=== PATIENT | male | born 1955 | race Caucasian/White ===

== ENCOUNTER 2021-12-28 01:56 | Day surgery (SDC) | payer OTHER, SELFPAY ==
[2021-12-14 14:54] VITALS: BMI 35.4
[2021-12-28 09:29] VITALS: BP 139/78; PULSE 70; RESP 20; TEMP 36; O2SAT 99; BMI 34.4
--- NOTE | 2021-12-28 09:32 | WPDANESEPPF ---
Anes - Initial Pre Proc Eval Procedure: Operation Date: 12/28/21 10:00 Proposed Procedures p Screening Colonoscopy - Augie Gloria MD Date/Time: 12/28/21 09:32 Surgeon: Augie Gloria MD Pre Op Diagnosis: hx of colon polyps Patient Data Age: 66 Gender: M Height: 1.88 m Weight: 121.9 kg Last Vital Signs Temp 36.0 C L 12/28/21 09:29 Pulse 70 12/28/21 09:29 Resp 20 12/28/21 09:29 BP 139/78 12/28/21 09:29 Pulse Ox 99 12/28/21 09:29 O2 Del Method Room Air 12/28/21 09:29 Allergies Allergy/AdvReac Type Severity Reaction Status Date / Time Penicillins Allergy Unknown Unknown Verified 12/28/21 09:29 Home Medications Medication Instructions Recorded Confirmed Type losartan 100 1 tablet PO DAILY #90 tabs 05/04/21 12/14/21 Rx mg-hydrochlorothiazide 12.5 mg tablet ergocalciferol (vitamin D2) 50 mcg 50 mcg PO DAILY 10/19/21 12/14/21 History (2,000 unit) capsule glipizide 5 mg tablet, extended 5 mg PO DAILY #90 tabs 10/19/21 12/14/21 Rx release 24 hr mecobalamin (vitamin B12) 5,000 5,000 mcg PO DAILY 10/19/21 12/14/21 History mcg lozenge multivitamin 1 tablet PO DAILY 10/19/21 12/14/21 History testosterone enanthate 75 mg/0.5 75 mg subcut WEEKLY 10/19/21 12/14/21 History mL subcutaneous auto-injector amlodipine 5 mg tablet 5 mg PO DAILY #90 tabs 10/22/21 12/14/21 Rx Patient hx anesthesia problems: none Family hx anesthesia problems: none Results Review: All pre-operative results and documents have been reviewed as part of the pre-operative evaluation. [facility] Past Medical History Medical History Dyslipidemia Essential (primary) hypertension Family history of prostate cancer in father Heart murmur History of colon polyps Hypogonadism in male OSMAR (obstructive sleep apnea) Type 2 diabetes mellitus without complication, without long-term current use of insulin Surgical History Surgical History History of tonsillectomy (Unknown) Family History Family History Father Malignant neoplasm of prostate Grandparent Malignant neoplasm of prostate Social History Social History Smoking status: Light tobacco smoker Tobacco type: cigars Smoking end date: 07/31/21 Alcohol intake: current Alcohol use details: socially Substance use: never Substance use type: does not use Living arrangements: with family Additional living arrangements comments: Gender identity (if verbalized by the patient): Male Sexual Orientation (if Verbalized by the Patient): Straight or Heterosexual Spiritual care concerns: No Anes - Eval Final PreProcedure Day of Procedure 12/28/21 09:32 Patient weight: obese Heart: regular rate and rhythm Lungs: clear to auscultation and normal air movement Airway: Mallampati scale class II Neurological: alert and oriented Last oral intake: >/= 8 hours ASA classification: III Emergent: no Anesthetic plan: proceed Anesthesia type and monitoring: general GIVS Results Review: All pre-operative results and documents have been reviewed as part of the pre-operative evaluation. Informed Consent: The patient's anesthetic plan and its attendant risks and benefits were discussed with the patient/family/POA. Questions were solicited and answers provided to the satisfaction of the patient/family/POA.
[2021-12-28] MEDS: LACTATED RINGERS 1,000 ML 150 ML IV CONT (09:41)
[2021-12-28 09:44] LABS: Glucose Point of Care 119 mg/dl (65-105)
--- NOTE | 2021-12-28 10:03 | PM.IMHP ---
H&P: HPI History of Present Illness Date/Time: 12/28/21 10:03 Chief Complaint: History of colon polyps Narrative: this is a 66-year-old white male patient presents for screening colonoscopy. Patient's current weight appetite and bowel movements are normal. He denies abdominal pain. Patient has had no bleeding. Family history is noncontributory. Patient had a tubulovillous adenoma removed the colon 2009. Review of Systems Review of Systems: Review of systems noncontributory. [facility] Past Medical History Medical History Dyslipidemia Essential (primary) hypertension Family history of prostate cancer in father Heart murmur History of colon polyps Hypogonadism in male OSMAR (obstructive sleep apnea) Type 2 diabetes mellitus without complication, without long-term current use of insulin Surgical History Surgical History History of tonsillectomy (Unknown) Family History Family History Father Malignant neoplasm of prostate Grandparent Malignant neoplasm of prostate Social History Social History Smoking status: Light tobacco smoker Tobacco type: cigars Smoking end date: 07/31/21 Alcohol intake: current Alcohol use details: socially Substance use: never Substance use type: does not use Living arrangements: with family Additional living arrangements comments: Gender identity (if verbalized by the patient): Male Sexual Orientation (if Verbalized by the Patient): Straight or Heterosexual Spiritual care concerns: No Meds Home Medications and Allergies Home Medications Medication Instructions Recorded Confirmed Type losartan 100 1 tablet PO DAILY #90 tabs 05/04/21 12/14/21 Rx mg-hydrochlorothiazide 12.5 mg tablet ergocalciferol (vitamin D2) 50 mcg 50 mcg PO DAILY 10/19/21 12/14/21 History (2,000 unit) capsule glipizide 5 mg tablet, extended 5 mg PO DAILY #90 tabs 10/19/21 12/14/21 Rx release 24 hr mecobalamin (vitamin B12) 5,000 5,000 mcg PO DAILY 10/19/21 12/14/21 History mcg lozenge multivitamin 1 tablet PO DAILY 10/19/21 12/14/21 History testosterone enanthate 75 mg/0.5 75 mg subcut WEEKLY 10/19/21 12/14/21 History mL subcutaneous auto-injector amlodipine 5 mg tablet 5 mg PO DAILY #90 tabs 10/22/21 12/14/21 Rx Allergies Allergy/AdvReac Type Severity Reaction Status Date / Time Penicillins Allergy Unknown Unknown Verified 12/28/21 09:29 Vital Signs Vital Signs - 24 hr 12/28/21 09:29 Temperature 96.8 F L Pulse Rate 70 Respiratory Rate 20 Blood Pressure 139/78 Pulse Oximetry 99 Oxygen Delivery Room Air Exam Narrative: Physical exam reveals patient to be alert. Vital signs stable. HEENT exam is unremarkable. Patient anicteric. Lungs are clear to auscultation and percussion. Heart is without murmur or extra sounds. Abdominal exam bowel sounds are present soft nontender with no organomegaly. Digital external rectal exam is normal. Assessment and Plan Assessment and plan (1) History of colon polyps: Code(s): Z86.010 - Personal history of colonic polyps Status: Acute Assessment and Plan: Patient has a prior history of colon polyps. Most [id number]. plan is for surveillance colonoscopy at this time. Further recommendations will be given after endoscopy.
[2021-12-28 10:33] VITALS: BP 95/61; PULSE 68; RESP 17; O2SAT 93
[2021-12-28 10:43] VITALS: BP 105/63; PULSE 68; RESP 15; O2SAT 97
[2021-12-28 10:53] VITALS: BP 123/74; PULSE 61; RESP 16; O2SAT 98
== END 2021-12-28 10:59 | disposition home or self-care (01) ==
PROVIDERS: PCP Family Medicine; Visit Provider Internal Medicine Gastroenterology
PROC: 0DJD8ZZ Inspection of Lower Intestinal Tract, Via Natural or Artificial Opening Endoscopic (ICD-10-PCS; CPT 45378; principal; 2021-12-28 10:00)
DX: Z12.11 Encounter for screening for malignant neoplasm of colon (principal); K63.5 Polyp of colon; Z86.010 Personal history of colon polyps; E78.5 Hyperlipidemia, unspecified; I10 Essential (primary) hypertension; R01.1 Cardiac murmur, unspecified; G47.33 Obstructive sleep apnea (adult) (pediatric); E11.9 Type 2 diabetes mellitus without complications; F17.290 Nicotine dependence, other tobacco product, uncomplicated; E66.9 Obesity, unspecified; Z68.34 Body mass index [BMI] 34.0-34.9, adult
CPT/HCPCS: 45385; 82948; 88305; J2704; J7120

== ENCOUNTER 2024-05-21 02:35 | Day surgery (SDC) | payer BC, SELFPAY ==
[2024-05-04 14:12] VITALS: BMI 28.3
--- NOTE | 2024-05-21 07:57 | P.PNAN_ITS ---
Anes - Initial Pre Proc Eval Procedure: Operation Date: 05/21/24 09:00 Proposed Procedures p Esophagogastroduodenoscopy EGD - Werner Sanchez MD Date/Time: 05/21/24 07:57 Surgeon: Werner Sanchez MD Pre Op Diagnosis: screening EGD Patient Data Age: 68 Gender: M Height: 1.88 m Weight: 100 kg Allergies Allergy/AdvReac Type Severity Reaction Status Date / Time Penicillins Allergy Unknown Unknown Verified 05/21/24 07:50 Home Medications ?Medication ?Instructions ?Recorded ?Confirmed ?Type mecobalamin (vitamin B12) 5,000 5,000 mcg PO DAILY 10/19/21 05/21/24 History mcg lozenge multivitamin 1 tablet PO DAILY 10/19/21 05/21/24 History prasterone (dhea) 25 mg tablet 25 mg PO DAILY 05/04/23 05/21/24 History terbinafine HCl 250 mg tablet See Rx Instructions PO DAILY #90 05/04/23 05/21/24 Rx tabs testosterone enanthate 75 mg/0.5 100 mg subcut WEEKLY 05/04/23 05/21/24 History mL subcutaneous auto-injector tadalafil 10 mg tablet (Cialis) 10 mg PO DAILY PRN sexual activity 08/03/23 05/09/24 Rx #30 tabs atorvastatin 10 mg tablet (Lipitor) 10 mg PO QHS #90 tabs 10/25/23 05/21/24 Rx finasteride 5 mg tablet 5 mg PO DAILY #90 tabs 12/05/23 05/21/24 Rx losartan 100 1 tablet PO DAILY #90 tabs 01/31/24 05/21/24 Rx mg-hydrochlorothiazide 12.5 mg tablet amlodipine 5 mg tablet 5 mg PO DAILY #90 tabs 02/08/24 05/21/24 Rx tirzepatide 10 mg/0.5 mL 10 mg (0.5 mL) subcut WEEKLY #6 mL 04/24/24 05/21/24 Rx subcutaneous pen injector (Mounjaro) cholecalciferol (vitamin D3) 50 50 mcg PO DAILY 05/09/24 05/21/24 History mcg (2,000 unit) tablet Patient hx anesthesia problems: none Family hx anesthesia problems: none Results Review: All pre-operative results and documents have been reviewed as part of the pre- operative evaluation. [facility] Past Medical History Medical History (Updated 05/09/24 @ 10:30 by Rl Castillo MD) Chronic venous insufficiency of lower extremity Erectile dysfunction Chronic nasal congestion Chronic rhinitis BPH (benign prostatic hyperplasia) Family history of prostate cancer Father and grandfather Hypogonadism in male Dyslipidemia Heart murmur Essential (primary) hypertension Family history of prostate cancer in father History of colon polyps OSMAR (obstructive sleep apnea) Type 2 diabetes mellitus without complication, without long-term current use of insulin Surgical History Surgical History History of tonsillectomy (Unknown) Family History Family History Father Malignant neoplasm of prostate Grandparent Malignant neoplasm of prostate Social History Social History Social History: Caffeine- tea/ coffee on weekends Smoking status: Current every day smoker Tobacco type: cigars Smoking end date: 07/31/21 Alcohol intake: current Drinks per week: 4 Alcohol use details: socially Substance use: never Substance use type: does not use Living arrangements: with family Additional living arrangements comments: Occupation/Education: occupation Gender identity (if verbalized by the patient): Male Sexual Orientation (if Verbalized by the Patient): Straight or Heterosexual Spiritual care concerns: No Agree to blood products: Yes Anes - Eval Final PreProcedure Day of Procedure 05/21/24 07:57 Patient weight: overweight Heart: regular rate and rhythm Lungs: clear to auscultation Airway: Mallampati scale class II Neurological: alert and oriented Last oral intake: >/= 8 hours ASA classification: III Emergent: no Anesthetic plan: proceed Anesthesia type and monitoring: general GIVS and standard monitoring Results Review: All pre-operative results and documents have been reviewed as part of the pre- operative evaluation. Informed Consent: The patient's anesthetic plan and its attendant risks and benefits were discussed with the patient/family/POA. Questions were solicited and answers provided to the satisfaction of the patient/family/POA.
[2024-05-21 07:59] VITALS: BP 132/77; PULSE 65; RESP 18; TEMP 36.1; O2SAT 100
[2024-05-21] MEDS: LACTATED RINGERS 1,000 ML 150 ML IV CONT (08:07)
[2024-05-21 08:08] LABS: Glucose Point of Care 77 mg/dl (65-105)
--- NOTE | 2024-05-21 08:43 | PM.HPGS ---
History of Present Illness History of Present Illness Consent: Risks, benefits, and alternatives have been discussed and questions answered. Patient agrees to proceed with procedure. Chief complaint: screening EGD Narrative: Mahendra Maza is a 68 year old male here for first egd because dysphagia Review of Systems Review of Systems: All systems reviewed & are unremarkable except as noted in HPI and below PMFSH Past Medical History Medical History (Updated 05/09/24 @ 10:30 by Rl Castillo MD) Chronic venous insufficiency of lower extremity Erectile dysfunction Chronic nasal congestion Chronic rhinitis BPH (benign prostatic hyperplasia) Family history of prostate cancer Father and grandfather Hypogonadism in male Dyslipidemia Heart murmur Essential (primary) hypertension Family history of prostate cancer in father History of colon polyps OSMAR (obstructive sleep apnea) Type 2 diabetes mellitus without complication, without long-term current use of insulin Surgical History Surgical History History of tonsillectomy (Unknown) Family History Family History Father Malignant neoplasm of prostate Grandparent Malignant neoplasm of prostate Social History Social History Social History: Caffeine- tea/ coffee on weekends Smoking status: Current every day smoker Tobacco type: cigars Smoking end date: 07/31/21 Alcohol intake: current Drinks per week: 4 Alcohol use details: socially Substance use: never Substance use type: does not use Living arrangements: with family Additional living arrangements comments: Occupation/Education: occupation Gender identity (if verbalized by the patient): Male Sexual Orientation (if Verbalized by the Patient): Straight or Heterosexual Spiritual care concerns: No Agree to blood products: Yes Meds Home Medications and Allergies Home Medications ?Medication ?Instructions ?Recorded ?Confirmed ?Type mecobalamin (vitamin B12) 5,000 5,000 mcg PO DAILY 10/19/21 05/21/24 History mcg lozenge multivitamin 1 tablet PO DAILY 10/19/21 05/21/24 History prasterone (dhea) 25 mg tablet 25 mg PO DAILY 05/04/23 05/21/24 History testosterone enanthate 75 mg/0.5 100 mg subcut WEEKLY 05/04/23 05/21/24 History mL subcutaneous auto-injector tadalafil 10 mg tablet (Cialis) 10 mg PO DAILY PRN sexual activity 08/03/23 05/09/24 Rx #30 tabs atorvastatin 10 mg tablet (Lipitor) 10 mg PO QHS #90 tabs 10/25/23 05/21/24 Rx losartan 100 1 tablet PO DAILY #90 tabs 01/31/24 05/21/24 Rx mg-hydrochlorothiazide 12.5 mg tablet amlodipine 5 mg tablet 5 mg PO DAILY #90 tabs 02/08/24 05/21/24 Rx tirzepatide 10 mg/0.5 mL 10 mg (0.5 mL) subcut WEEKLY #6 mL 04/24/24 05/21/24 Rx subcutaneous pen injector (Matty) cholecalciferol (vitamin D3) 50 50 mcg PO DAILY 05/09/24 05/21/24 History mcg (2,000 unit) tablet finasteride 5 mg tablet See Rx Instructions .Route 05/21/24 Rx .COMPLEX #90 tabs terbinafine HCl 250 mg tablet See Rx Instructions .Route 05/21/24 Rx .COMPLEX #90 tabs Allergies Allergy/AdvReac Type Severity Reaction Status Date / Time Penicillins Allergy Unknown Unknown Verified 05/21/24 07:50 Vital Signs Vital Signs - 24 hr 05/21/24 07:59 Temperature 96.9 F L Pulse Rate 65 Respiratory Rate 18 Blood Pressure 132/77 Pulse Oximetry 100 Oxygen Delivery Room Air Exam Const: General: comfortable and no acute distress HENMT: Face/Nose/Sinus: Normal nares present Eyes: General: appearance normal, both eyes and all related structures Neck: Neck: no JVD Resp: Auscultation: clear to auscultation bilaterally Cardio: Rate: regular rate Rhythm: regular rhythm GI: Inspection: non-distended GI Palp: Yes Soft to palpation Skin: General skin exam: normal color Neuro: Speech: normal speech Extrem: General: normal to inspection Psych: Mental Status: mental status grossly normal Assessment and Plan Assessment and plan (1) Esophageal dysphagia: Code(s): R13.19 - Other dysphagia Status: Acute Assessment and Plan: egd
[2024-05-21 08:58] VITALS: BP 116/75; PULSE 67; RESP 18; O2SAT 100
[2024-05-21 09:08] VITALS: BP 117/78; PULSE 60; RESP 18; O2SAT 100
== END 2024-05-21 09:24 | disposition home or self-care (01) ==
PROVIDERS: PCP Family Medicine; Visit Provider Internal Medicine Gastroenterology
PROC: 0DJ08ZZ Inspection of Upper Intestinal Tract, Via Natural or Artificial Opening Endoscopic (ICD-10-PCS; CPT 43239; principal; 2024-05-21 09:00)
DX: K21.00 Gastro-esophageal reflux disease with esophagitis, without bleeding (principal); K29.50 Unspecified chronic gastritis without bleeding; B96.81 Helicobacter pylori [H. pylori] as the cause of diseases classified elsewhere; I10 Essential (primary) hypertension; G47.33 Obstructive sleep apnea (adult) (pediatric); E11.9 Type 2 diabetes mellitus without complications; N52.9 Male erectile dysfunction, unspecified; N40.0 Benign prostatic hyperplasia without lower urinary tract symptoms; I87.2 Venous insufficiency (chronic) (peripheral); E29.1 Testicular hypofunction; R09.81 Nasal congestion; R01.1 Cardiac murmur, unspecified; F17.210 Nicotine dependence, cigarettes, uncomplicated; Z79.85 Long-term (current) use of injectable non-insulin antidiabetic drugs; Z86.0100 Personal history of colon polyps, unspecified; Z80.42 Family history of malignant neoplasm of prostate
CPT/HCPCS: 43239; 82948; 88305; J2003; J2704; J7120

== ENCOUNTER 2024-06-05 13:22 | Outpatient (CLI) | payer BC, SELFPAY ==
--- NOTE | 2024-06-05 13:41 | ECHO_ITS ---
Patient Info Name: Mahendra Maza Age: 68 years : 1955 Gender: Male Ht: 74 in Wt: 210 lbs BSA: 2.24 m2 HR: 76 bpm BP: 115 / 78 mmHg Heart Rhythm: Sinus Rhythm Technical Quality: Fair Exam Date: 06/05/2024 1:49 PM Exam Location: Echo Lab Patient Status: Outpatient Admit Date: 06/05/2024 Staff Ordering Physician: Rl Castillo MD Unemployment Insurance Director: Lenka Bradshaw RDCS Attending Provider: Rl Castillo MD Exam Type: CA echo doppler color flow Study Info Indications I10 - Essential (primary) hypertension Complete two-dimensional, color flow and Doppler transthoracic echocardiogram is performed. Summary 1. Complete two-dimensional, color flow and Doppler transthoracic echocardiogram is performed. 2. Left ventricular chamber dimension is normal. 3. Left ventricular systolic function is normal, estimated at 65-70%. 4. The left ventricular diastolic function is normal. 5. E/e' 9 is minimally elevated. 6. There is mild aortic valve sclerosis. 7. There is trace aortic valve regurgitation. 8. There is trace tricuspid valve regurgitation. 9. No pulmonary hypertension, estimated pulmonary arterial systolic pressure is 30 mmHg. 10. There is trace pulmonic regurgitation. 11. Dilated inferior vena cava with >50% collapse upon inspiration consistent with elevated right atrial pressure, 10 mmHg. Left Ventricle E/e' 9 is minimally elevated. Left ventricular chamber dimension is normal. Left ventricular systolic function is normal, estimated at 65-70%. The left ventricular diastolic function is normal. Right Ventricle Right ventricular systolic function is normal and with normal TAPSE 2.3 cm. Right ventricular chamber dimension is normal. Left Atria Left atrial chamber dimension is normal. Right Atria Right atrial chamber dimension is normal. Aortic Valve The aortic valve is trileaflet. There is mild aortic valve sclerosis. There is no aortic valve stenosis. There is trace aortic valve regurgitation. Pulmonic Valve There is trace pulmonic regurgitation. Mitral Valve There is no mitral valve stenosis. There is no mitral valve regurgitation. Tricuspid Valve There is trace tricuspid valve regurgitation. No pulmonary hypertension, estimated pulmonary arterial systolic pressure is 30 mmHg. Pericardium/Pleural There is no pericardial effusion. Inferior Vena Cava Dilated inferior vena cava with >50% collapse upon inspiration consistent with elevated right atrial pressure, 10 mmHg. Aorta The aortic root size at the sinus of Valsalva is normal. Left Ventricular Outflow Tract Name Value Normal LVOT 2D LVOT Diameter 2.0 cm LVOT Doppler LVOT Peak Gradient 6 mmHg LVOT Mean Gradient 4 mmHg LVOT VTI 25 cm LVOT VTI/AV VTI Ratio 0.6 LVOT Stroke Volume 76 ml LVOT CO 5.3 l/min LVOT CI 2.4 l/min/m2 Pulmonic Valve Name Value Normal RVOT Doppler RVOT Peak Gradient 2 mmHg PV Doppler PV Peak Gradient 5 mmHg Mitral Valve Name Value Normal MV Doppler MV Decel [place] 368 cm/s2 MV PHT 70 ms MV Area (PHT) 3.1 cm2 4.0-5.0 MV Diastolic Function MV E Peak Velocity 89 cm/s MV A Peak Velocity 71 cm/s MV E/A 1.2 MV Decel Time 241 ms MV Annular TDI MV E/e' (Septal) 10.8 <=8.0 MV E/e' (Lateral) 8.5 <=8.0 MV E/e' (Average) 9.7 Tricuspid Valve Name Value Normal TV Regurgitation Doppler TR Peak Velocity 222 cm/s TR Peak Gradient 19 mmHg Estimated PAP/RSVP RA Pressure 10 mmHg <=5 PA Systolic Pressure 30 mmHg <36 RV Systolic Pressure 30 mmHg <36 Aorta Name Value Normal Ascending Aorta Ao Root Diameter (MM) 3.8 cm Ao Root Diam Index (MM) 1.7 cm/m2 Aortic Valve Name Value Normal AV Doppler AV Peak Velocity 183 cm/s AV Peak Gradient 13 mmHg AV Mean Gradient 6 mmHg AV VTI 39 cm AV Area (Cont Eq VTI) 1.9 cm2 >=3.0 AV Area (Cont Eq Gentry) 2.1 cm2 AV Regurgitation 2D LVOT Area 3.1 cm2 AV Regurgitation Doppler AR Decel Time 1,524 ms AR Decel [place] 208 cm/s2 AR PHT 442 ms Ventricles Name Value Normal LV Dimensions 2D/MM IVS Diastolic Thickness (2D) 0.9 cm 0.6-1.0 LVID Diastole (2D) 5.5 cm 4.2-5.8 LVIW Diastolic Thickness (2D) 0.8 cm 0.6-1.0 LVID Systole (2D) 3.1 cm 2.5-4.0 LVOT Diameter 2.0 cm LV Mass (2D Cubed) 166.70 g 88.00-224.00 LV Mass Index (2D Cubed) 74 g/m2 49-115 Relative Wall Thickness (2D) 0.28 LV Fractional Shortening/Ejection Fraction 2D/MM LV Fractional Shortening (2D) 44 % 25-43 LV EF (2D Teicholz) 74 % 52-72 LV Diastolic Volume (4C MOD) 98 ml LV EF (4C MOD) 73 % LV Diastolic Volume (2C MOD) 82 ml LV EF (2C MOD) 64 % LV Diastolic Volume (BP MOD) 92 ml 62-150 LV Diastolic Volume Index (BP MOD) 41 ml/m2 34-74 LV Systolic Volume (BP MOD) 29 ml 21-61 LV Systolic Volume Index (BP MOD) 13 ml/m2 11-31 LV EF (BP MOD) 69 % 52-72 LV Diastolic Length (4C) 8.5 cm LV Systolic Length (4C) 7.0 cm LV Stroke Volume (4C MOD) 71 ml Atria Name Value Normal LA Dimensions LA Dimension (MM) 4.3 cm 3.0-4.1 LA Volume (4C A-L) 35 ml LA Volume (BP A-L) 44 ml RA Dimensions RA Area (4C) 16.9 cm2 <=18.0 Report Signatures
== END 2024-06-05 13:23 | disposition home or self-care (01) ==
PROVIDERS: PCP Family Medicine; Visit Provider Family Medicine
DX: R01.1 Cardiac murmur, unspecified (principal); I10 Essential (primary) hypertension; I35.8 Other nonrheumatic aortic valve disorders
CPT/HCPCS: 93306

== ENCOUNTER 2024-08-13 17:14 | Outpatient (CLI) | payer BC, SELFPAY ==
[2024-08-13 18:15] LABS: Alanine Aminotransferase 54 U/L (6-50); Aspartate Amino Transferase 52 U/L (17-59)
== END 2024-08-13 17:15 | disposition home or self-care (01) ==
LOC: ANHLAB 17:16
PROVIDERS: PCP Family Medicine; Visit Provider Podiatrist Foot & Ankle Surgery
DX: B35.1 Tinea unguium (principal)
CPT/HCPCS: 36415; 84450; 84460

== ENCOUNTER 2024-10-05 09:32 | Outpatient (CLI) | payer BC, SELFPAY ==
--- NOTE | ~2024-10-05 | XR_ITS ---
EXAMINATION: XR barium swallow DATE: 10/05/2024 10:18 INDICATION: Dysphagia. TECHNIQUE: The patient drank thick barium, gas-producing crystals, and thin barium. Fluoroscopic spot radiographs of the hypopharynx and esophagus were obtained. Fluoroscopy exposure time was 1.5 minut es. A total of 1292 fluoroscopic images were recorded. Total DAP was 8.171 Gycm^2 COMPARISON: None. FINDINGS: The pharynx is symmetric and without evidence of mass lesion or mucosal irregularity. There is significant residue in the vallecula and piriform sinus after the swallow. There was a small amou nt of laryngeal penetration on the initial swallow with contrast potentially articulating along the c ephalad margin of the vocal cords which was solid but which was effectively cleared with a prompted c ough. A second episode of more significant laryngeal penetration with aspiration of a moderate amount of contrast was observed with swallow performed in the PEÑA prone position which elicited a strong co ugh reflex. A small amount of aspirated contrast was seen in the proximal trachea prior to the swallo w consistent with an intervening third episode of aspiration which was not observed in real-time. The esophagus is normal without mass or stricture. Esophageal motility is normal. There is no hiatal her jony. There was no gastroesophageal reflux with provocative maneuvers. IMPRESSION: 1. Pharyngeal dysphagia with recurrent laryngeal penetration with aspiration and significant residue in the vallecula and piriform sinuses. Would recommend formal evaluation with modified swallow study done in conjunction with the department of speech pathology. 2. Otherwise unremarkable esophagram esophagus, no hiatal hernia and no observed gastroesophageal ref lux. Reviewed, dictated and finalized at location A. IMPRESSION: 1. Pharyngeal dysphagia with recurrent laryngeal penetration with aspiration an d significant residue in the vallecula and piriform sinuses. Would recommend fo rmal evaluation with modified swallow study done in conjunction with the depart ment of speech pathology. 2. Otherwise unremarkable esophagram esophagus, no hiatal hernia and no observe d gastroesophageal reflux.
== END 2024-10-05 09:33 | disposition home or self-care (01) ==
PROVIDERS: PCP Family Medicine; Visit Provider Otolaryngology Otolaryngology/Facial Plastic Surgery
DX: R13.10 Dysphagia, unspecified (principal)
CPT/HCPCS: 74220

== ENCOUNTER 2024-11-12 16:37 | Outpatient (CLI) | payer BC, MEDICARE, SELFPAY ==
--- OUTSIDE RECORDS SUMMARY | 2024-11-12 16:41 | XMS_ITS | Clinical Summary ---
Author Organization [facility] Address [address] [place] [address] Care Team Providers Care Printing Sign Machine Operator Name Role Phone Hardik Gonzalez MD Primary Care Provider Source Comments [facility],non-owned Affiliates and Associated Physician Practices is amultiple site organization consisting of ambulatory clinics and hospital sitesin [place], [place], [place] and [place]. This disclosure is being madepursuant to the Care Everywhere program and may not contain all information available regarding this patient. Last updated 18.[facility] Encounters Date Type Department Care Team Description 11/06/2024 Travel from Last 3 Months Social History Tobacco Use Types Packs/Day Years Used Date Smoking Tobacco: Never Assessed Sex and Gender Information Value Date Recorded Sex Assigned at Not on file Legal Sex Male 9:43 AM CDT Gender Identity Not on file Sexual Orientation Not on file Plan of Treatment Health Maintenance Due Date Last Done Comments COLOGUARD (AGES 45-75) - COL ON CA SCREENING 1955 COLON MONITORING 1955 COLONOSCOPY - COLON CA SCREENING 1955 CT COLONOGRAPHY - COLON CA SCREENING 1955 Colorectal Cancer Screening 1955 FIT - COLON CA SCREENING 1955 FLEX SIG - COLON CA SCREENING 1955 LIPID TESTING 1955 HEPATITIS C SCREENING 12/03/1975 DTAP/TDAP/TD VACCINES (1 - Tdap) 1976 PNEUMOCOCCAL VACCINE 50+ (1 of 1 - PCV) 12/08/2007 ZOSTER VACCINE (1 of 2) 12/08/2007 COVID-19 VACCINE (1 - 2023-2 5 season) 2024 DEPRESSION SCREENING 05/02/2024 INFLUENZA VACCINE (#1) 2024 Respiratory Syncytial Virus (RSV) Vaccine Pt: or over 60 yrs (1 - 1-dose 75+ series) 2032 HEPATITIS B VACCINE Aged Out No longe r eligible based on patient's age to complete this topic HIB VACCINE Aged Out No longer eligi ble based on patient's age to complete this topic HPV VACCINE Aged Out No longer eligi ble based on patient's age to complete this topic MENINGOCOCCAL (Group B) VACC INE SHARED DECISION-MAKING Aged Out No longer eligibl e based on patient's age to complete this topic MENINGOCOCCAL GROUPS A/C/Y/W VACCINE Aged Out No longer eligible b ased on patient's age to complete this topic Insurance [facility] Address: [facility] [id number] [place] [address] Care Teams Printing Sign Machine Operator Relationship Specialty Start Date End Date Hardik Gonzalez MD [address] [address] PCP - General 12/29/21
[2024-11-12 17:18] LABS: Alanine Aminotransferase 53 U/L (6-50); Aspartate Amino Transferase 55 U/L (17-59)
== END 2024-11-12 16:38 | disposition home or self-care (01) ==
LOC: ANHLAB 16:39
PROVIDERS: PCP Family Medicine; Visit Provider Podiatrist Foot & Ankle Surgery
DX: B35.1 Tinea unguium (principal)
CPT/HCPCS: 36415; 84450; 84460

== ENCOUNTER 2025-01-24 14:30 | Outpatient (RCR) | payer BC, SELFPAY ==
--- NOTE | 2024-11-15 16:40 | OPREHPOC ---
Outpatient Therapy Plan of Care This is a Multidisciplinary Plan of Care that may contain components documented by all disciplines (PT, OT, and ST.) ST Problem 1 ST Problem #[address] Goal 1 Goal / Goal Update The patient will participate in home programming to improve carry over/generalization of skills to the home environment. Target Visit 6 ST Goal 1 Goal / Goal Update Dysphagia: 1. The patient will complete dysphagia exercises to include: Effortful swallow, Maurisio Maneuver, Meghan Maneuver, Shaker Exercise, Supraglottic, and Tongue Base Retraction Exercise with 85% accuracy and minimal cues. 2. The patient will complete and be compliant with a provided HEP with above exercises 85% of the time. 3. The patient will use compensatory dysphagia strategies to include 1. Soft/slick diet 2. Small bites 3. Alternate bites and drinks 4. Repeat swallow 5. Upright with and following meals for 30 minutes with 85% accuracy and minimal cues. 4. Schedule and complete an MBS Study 5. Initiate Vital Stim program for dysphagia following receiving a physician order. Target Visit 10
--- NOTE | 2024-11-15 16:40 | STOPEVAL1 ---
Assessment and note entered by Marilee Kerns ENVIRONMENTAL MANAGEMENT SPECIALIST Evaluation Information Assessment Status Evaluation Diagnosis R13.12 ICD-10 Condition Codes (ST) Dysphagia, oropharyngeal phase R13.12,Other voice and resonance disorders R49.8 Subjective Information The patient is a 68 year old male referred for speech therapy services and a MBS study following results of a recent barium swallow completed on 10/05/24. Barium swallow results reviewed by ENVIRONMENTAL MANAGEMENT SPECIALIST and revealed aspiration and penetration risk due to notable residual remaining within the valleculae and pyriform sinus as well as reduced cricopharyngeal opening, reduced epiglottic inversion, laryngeal elevation and laryngeal adduction. The patient has orders to complete a MBS to better evaluate swallow function and speech therapy order to initiate treatment. The patient reports first noticing swallowing difficulties approximately 3months ago but cannot report any changes in medication or circumstances that may have impacted his swallowing abilities. He has had no reported changes in respiration and greatest compliant is the impact of taking solids. Reported Pain Level Pain Score 0: Self Report Assessment ST Clinical Summary The patient is a 68 year old male referred for speech therapy services and a MBS study following results of a recent barium swallow completed on 10/05/24. Barium swallow results reviewed by ENVIRONMENTAL MANAGEMENT SPECIALIST and revealed aspiration and penetration risk due to notable residual remaining within the valleculae and pyriform sinus as well as reduced cricopharyngeal opening, reduced epiglottic inversion, laryngeal elevation and laryngeal adduction. The patient has orders to complete a MBS to better evaluate swallow function and a speech therapy order to initiate treatment. The patient reports first noticing swallowing difficulties approximately 3 months ago but cannot report any changes in medication or circumstances that may have impacted his swallowing abilities. He has had no reported changes in respiration and his greatest compliant is the impact on eating solids. The patient's barium swallow video imaging was reviewed prior to the evaluation and with the patient to discuss treatment options. The patient was presented cup trials thin liquid and tsp trials puree texture. Solids were held due to already known risk of valleculae and pyriform sinus residual with solids and thicker substances. Oral Motor Exam: Adequate and functional lingual and labial range of movement. Oral stage: Timely oral preparation and transit for all consistencies. Pharyngeal stage: When presented small cup trials of thin liquid vocal quality was clear without noted coughing or choking. No outward clinical signs of aspiration were observed. When presented small tsp trials puree applesauce the patient reported a sticking sensation following the initial tsp trial. Use of a liquid wash was beneficial in clearing the bolus after 2 liquid drinks and a repeat swallow per patient reports. When utilizing a small tsp trial of puree applesauce followed by a supraglottic swallow the patient reported that the technique did appear to eliminate the sticking sensation to some degree. The patient and speech therapist initiated a dysphagia program to include the following exercises: Meghan Maneuver, Maurisio Maneuver, Shaker exercise, Tongue base exercise, Supraglottic Swallow, and Effortful swallow. In addition dysphagia techniques with meals include 1 . Small bites 2. Alternate bites and drinks 3. Effortful Swallow 4. Repeat dry swallow 5. Upright 30 minutes after meals and with meals. Also suggested pills with applesauce and possible diet modification to avoid more hard solids or sticky substances. Will request an order to complete Vital Stim treatment. Plan of Care Interventions Treatment of Swallowing Dysfunction ST Services Indicated Yes Treatment Frequency and 1x a week x 10 visits Duration These treatments will address the objective and functional deficits as defined above. The patient will be advanced safely and appropriately in order for the patient to progress towards his/her prior level of function. Additional exercises will be introduced and as well as a comprehensive home exercise program upon discharge, if needed, ?to ensure carryover of functional gains achieved in the clinic. This treatment plan has been reviewed and agreement upon by the patient.
--- NOTE | 2025-01-24 15:21 | STOPDC ---
Assessment and note entered by MISBAH Mathew Evaluation Information Assessment Status Discharge Reported Pain Level Pain Score 0: Self Report Assessment ST Clinical Summary Initial Evaluation: The patient is a 68 year old male referred for speech therapy services and a MBS study following results of a recent barium swallow completed on 10/05/24. Barium swallow results reviewed by HOGSHEAD STOCK CLERK and revealed aspiration and penetration risk due to notable residual remaining within the valleculae and pyriform sinus as well as reduced cricopharyngeal opening, reduced epiglottic inversion, laryngeal elevation and laryngeal adduction. The patient has orders to complete a MBS to better evaluate swallow function and a speech therapy order to initiate treatment. The patient reports first noticing swallowing difficulties approximately 3 months ago but cannot report any changes in medication or circumstances that may have impacted his swallowing abilities. He has had no reported changes in respiration and his greatest compliant is the impact on eating solids. The patient's barium swallow video imaging was reviewed prior to the evaluation and with the patient to discuss treatment options. The patient was presented cup trials thin liquid and tsp trials puree texture. Solids were held due to already known risk of valleculae and pyriform sinus residual with solids and thicker substances. Oral Motor Exam: Adequate and functional lingual and labial range of movement. Oral stage: Timely oral preparation and transit for all consistencies. Pharyngeal stage: When presented small cup trials of thin liquid vocal quality was clear without noted coughing or choking. No outward clinical signs of aspiration were observed. When presented small tsp trials puree applesauce the patient reported a sticking sensation following the initial tsp trial. Use of a liquid wash was beneficial in clearing the bolus after 2 liquid drinks and a repeat swallow per patient reports. When utilizing a small tsp trial of puree applesauce followed by a supraglottic swallow the patient reported that the technique did appear to eliminate the sticking sensation to some degree. The patient and speech therapist initiated a dysphagia program to include the following exercises: Meghan Maneuver, Maurisio Maneuver, Shaker exercise, Tongue base exercise, Supraglottic Swallow, and Effortful swallow. In addition dysphagia techniques with meals include 1 . Small bites 2. Alternate bites and drinks 3. Effortful Swallow 4. Repeat dry swallow 5. Upright 30 minutes after meals and with meals. Also suggested pills with applesauce and possible diet modification to avoid more hard solids or sticky substances. Will request an order to complete Vital Stim treatment. Discharge 01-24-25 Upon discharge the patient is consuming regular and thin liquid trials without noted clinical signs of aspiration utilizing the provided dysphagia strategies to include: 1. Small bites and drinks, 2, Repeat swallow when needed 3. Alternate bites and drinks as needed 4. Forceful/ Effortful swallow 5. Upright when eating. The patient has been provided a personalized HEP which he is compliant in completing 5x a week and states he will continue to utilize following discharge to maintain his swallow function. Exercises include: 1. Meghan Maneuver, 2. Maurisio Maneuver, 3. Tongue Base Retraction Exercise, 4. Chin Tuck Resistance 5. Effortful Swallow, and 6. Supraglottic. No further speech services indicated at this time. Thank you for the consult. Plan of Care ST Services Indicated No
== END 2025-01-25 09:22 | disposition home or self-care (01) ==
LOC: ANHST 14:30
PROVIDERS: PCP Family Medicine; Visit Provider Otolaryngology Otolaryngology/Facial Plastic Surgery
DX: R13.12 Dysphagia, oropharyngeal phase (principal); R49.8 Other voice and resonance disorders
CPT/HCPCS: 92507; 92526; 92610